=== PATIENT | male | born 1990 | race Caucasian/White ===

== ENCOUNTER 2017-09-24 17:16 | Emergency (ER) | payer MEDICAID ==
[~2017-09-24 17:16] MED LIST: TRAM50 PO
[2017-09-24 17:17] VITALS: BP 144/80; PULSE 95; RESP 12; TEMP 99; O2SAT 99
--- NOTE | 2017-09-24 20:02 | PD ---
HPI Chief Complaint: Musculoskeletal Complaint Time Seen by Provider: 19:54 Travel History International Travel<30 days: No Contact w/Intl Traveler<30days: No Traveled to known affect area: No History of Present Illness HPI 27-year-old white male presents emergency Department with complaints of lower back pain. Patient states that his pain is been present now for the past 2days. This occurred when he was lifting his child out of the swing. He states that he is visiting a friend here in [facility] and decided to be seen. Is taking ibuprofen without relief. States the pain is more so on the right than the left. Worse with bending and movement. [id number] in intensity. No acute bowel or bladder changes. History of back problems in the past. History Past Medical Histgory Narrative Medical Back injury Tetanus Vaccination: < 5 Years Past Surgical History Surgical History: No Previous Surgery Social History Alcohol Use: No Tobacco Use: Yes Allergies-Medications (Allergen,Severity, Reaction): Coded Allergies: No Known Allergies (Unverified Adverse Reaction, Unknown, 09/24/17) Reported Meds & Prescriptions Reported Meds & Active Scripts Active Ultram (Tramadol HCl) 50 Mg Tab 50 Mg PO Q6H PRN 10 Days Review of Systems General / Constitutional: No: Fever Musculoskeletal: Positive: Limited ROM, Cramping, Pain Neurologic: No: Paresthesia, Incontinence Physical Exam Narrative GENERAL: This is a well-nourished, well-developed patient, in no apparent distress. SKIN: No rashes, ecchymoses or lesions. Warm and dry. HEAD: Atraumatic. Normocephalic. EYES: PERRL, EOMI, no discharge or injection. No scleral icterus. EARS: Clear NOSE: Nasal turbinates appear normal. THROAT: Mucosa pink and moist. Airway patent. NECK: Trachea midline. supple, moves head freely. LUNGS: Clear to auscultation. CV: Regular in rhythm. ABDOMEN: Soft nontender. EXT: No clubbing cyanosis or edema. Back: No central bony tenderness to palpation of the dorsal lumbar spine. Patient complains of bilateral paralumbar tenderness more so on the right than left. He is able to bend 70. No saddle anesthesia. Heel and toe stand. No gross spasm. Data Data Last Documented VS Vital Signs Date Time Temp Pulse Resp B/P (MAP) Pulse Ox O2 Delivery O2 Flow Rate FiO2 11/9/17 17:17 99.0 95 12 144/80 (101) 99 MDM Medical Screen Exam Complete: Yes Emergency Medical Condition: No Differential Diagnosis MDM: High Differential diagnoses: AAA,Fracture, sprain, strain, HNP, nerve or vascular injury, epidural abscess, pilonidal cyst, pyelonephritis, UTI, nephrolithiasis, ureterolithiasis Narrative Course A medical screening exam was performed: At the time of evaluation the presenting medical condition was determined not to be of an emergent nature. The patient was given the option of receiving additional care, but declined. Patient was given options for additional community resources from which to obtain care. The Patient Has Been advised to seek medical attention for their presenting complaint. The patient has been advised to return to the ER at any time if an emergent condition develops. Primary Impression: Encounter for medical screening examination Condition: Andrew Pace Sep 24, 2017 20:02
== END 2017-09-24 20:30 | disposition left against medical advice (07) ==
LOC: NEPK 17:16
DX: Z00.00 Encounter for general adult medical examination without abnormal findings (principal)
CPT/HCPCS: 99281